=== PATIENT | male | born 1970 | race American Indian/Alaskan Native ===

== ENCOUNTER 2022-06-19 07:19 | Emergency (ER) | payer SELFPAY ==
[2022-06-19] MEDS ORDERED: hydrALAZINE 20 MG/1 ML INJ IV ONE (09:01)
--- NOTE | 2022-06-19 09:15 | Emergency Department Report ---
ED General Adult HPI - General Chief complaint: Dyspnea/Respdistress Stated complaint: JAVI Time Seen by Provider: 06/19/22 08:54 Source: patient, EMS Mode of arrival: Ambulatory Limitations: No Limitations - History of Present Illness Initial comments: 52-year-old -[place] male complaining of increased shortness of breath and his blood pressure being elevated. Says he feels short of breath when his blood pressure elevated. Admits he has been having some stresses at home and has not been taking his blood pressure medicine. -: Gradual, days(s) Location: chest Radiation: non-radiation Severity scale (0 -10): 0 Worsens with: none Associated Symptoms: denies other symptoms Treatments Prior to Arrival: none - Related Data Home Medications Medication Instructions Recorded Confirmed Last Taken Losartan/Hydrochlorothiazide 1 each PO DAILY 06/19/22 06/19/22 Unknown [Losartan-Hctz 100-12.5 mg Tab] Metformin HCl [metFORMIN] 1,000 mg PO BID 06/19/22 06/19/22 Unknown Rosuvastatin Calcium 5 mg PO DAILY 06/19/22 06/19/22 Unknown Allergies Allergy/AdvReac Type Severity Reaction Status Date / Time No Known Allergies Allergy Unverified 06/19/22 07:39 ED Review of Systems ROS: Stated complaint: JAVI Other details as noted in HPI Constitutional: no symptoms reported Eyes: as per HPI ENT: as per HPI Respiratory: no symptoms reported Cardiovascular: as per HPI Endocrine: no symptoms reported Gastrointestinal: as per HPI Neurological: as per HPI Psychiatric: as per HPI Hematological/Lymphatic: as per HPI ED Past Medical Hx - Social History Smoking Status: Current Every Day Smoker Substance Use Type: None - Medications Home Medications: Home Medications Medication Instructions Recorded Confirmed Last Taken Type Losartan/Hydrochlorothiazide 1 each PO DAILY 06/19/22 06/19/22 Unknown History [Losartan-Hctz 100-12.5 mg Tab] Metformin HCl [metFORMIN] 1,000 mg PO BID 06/19/22 06/19/22 Unknown History Rosuvastatin Calcium 5 mg PO DAILY 06/19/22 06/19/22 Unknown History ED Physical Exam - General Limitations: No Limitations General appearance: alert, in no apparent distress - Head Head exam: Present: atraumatic, normocephalic, normal inspection - Eye Eye exam: Present: normal appearance, PERRL, EOMI - ENT ENT exam: Present: normal exam ED Course Vital Signs 06/19/22 06/19/22 06/19/22 07:20 08:10 13:58 Temperature 99.1 F 98.4 F Pulse Rate 82 75 87 Respiratory 24 19 19 Rate Blood Pressure 156/95 Blood Pressure 176/96 156/95 168/88 [Left] O2 Sat by Pulse 98 100 97 Oximetry ED Medical Decision Making - Lab Data Result diagrams: 06/19/22 09:15 06/19/22 09:15 Critical care attestation.: If time is entered above; I have spent that time in minutes in the direct care of this critically ill patient, excluding procedure time. ED Disposition Clinical Impression: Hypertension, CHF exacerbation Disposition: 01 HOME / SELF CARE / HOMELESS Is pt being admited?: No Does the pt Need Aspirin: No Condition: Stable Instructions: Preventing Hypertension, Hypertension (ED), Hypertension, Adult, [id number] Referrals: ABIGAIL GASTON MD [Primary Care Provider] - 3-5 Days
[2022-06-19 09:29] LABS: Basophils % (Auto) 0.6 % (0.0-1.8); Eosinophils % (Auto) 0.7 % (0.0-4.3); Hematocrit 39.4 % (35.5-45.6); Hemoglobin 13.2 gm/dl (11.8-15.2); Lymphocytes % (Auto) 23.7 % (13.4-35.0); Mean Corpuscular HGB Conc 34 % (32-34); Mean Corpuscular Volume 97 fl (84-94); Monocytes # (Auto) 0.2 K/mm3 (0.0-0.8); Monocytes % (Auto) 4.6 % (0.0-7.3); Platelet Count 152 K/mm3 (140-440); Red Blood Count 4.05 M/mm3 (3.65-5.03); Red Cell Distribution Width 14.1 % (13.2-15.2)
[2022-06-19 09:48] LABS: Alanine Aminotransferase 38 units/L (7-56); Albumin 4.2 g/dL (3.9-5); BUN/Creatinine Ratio 6; Blood Urea Nitrogen 5 mg/dL (9-20); Calcium 9.1 mg/dL (8.4-10.2); Hemolysis Index 8
[2022-06-19 15:10] VITALS: BP 176/95
--- NOTE | 2022-06-20 09:29 | Electrocardiograph Report ---
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
== END 2022-06-19 16:23 | disposition home or self-care (01) ==
LOC: ED 07:19
DX: I11.0 Hypertensive heart disease with heart failure (principal); I50.9 Heart failure, unspecified; F17.200 Nicotine dependence, unspecified, uncomplicated; Z79.899 Other long term (current) drug therapy
CPT/HCPCS: 36415; 80053; 85025; 93005; 96374; 99283; J0360